=== PATIENT | male | born 1975 | race Asian ===

== ENCOUNTER 2023-01-18 23:41 | Emergency (ER) | payer OTHER, SELFPAY ==
[2023-01-18 23:47] VITALS: O2SAT 97
[2023-01-18 23:48] VITALS: BP 176/92; PULSE 111; O2SAT 99
[2023-01-18 23:55] VITALS: BP 176/92; PULSE 107; RESP 18; TEMP 37.2; O2SAT 99; BMI 28.7
[2023-01-19] VITALS (8 sets, daily range): BP systolic 155–163; BP diastolic 89–94; PULSE 88–107; RESP 13–24; O2SAT 96–100
--- NOTE | 2023-01-19 00:06 | DI.RAD.S_ITS ---
PROCEDURE: XR CHEST 1V INDICATIONS: Chest pain TECHNIQUE: One view of the chest was acquired. COMPARISON: None. FINDINGS: Surgical changes and devices: None. Lungs and pleura: Lungs are clear. No pleural effusions or pneumothorax. Mediastinum: Mediastinal contours appear normal. Heart size is normal. Bones and chest wall: No suspicious bony lesions. Overlying soft tissues appear unremarkable. IMPRESSION: No acute cardiopulmonary abnormality. Dictated by: Ismael Ballard M.D. on 01/19/2023 at 0:20 Approved by: Ismael Ballard M.D. on 01/19/2023 at 0:20
--- NOTE | 2023-01-19 00:23 | ED_ITS ---
HPI - Chest Pain General Chief Complaint: Chest Pain Stated Complaint: high blood pressure 166/103 Time Seen by Provider: 01/19/23 00:05 Source: patient and family Mode of arrival: Ambulatory Limitations: no limitations History of Present Illness HPI narrative: Patient is a 48-year-old male. Does have a history of PTSD secondary to active duty service. Is on duloxetine for this. Is here for evaluation of several weeks of chest discomfort. Has not seen his primary doctor for this. Also states earlier today he took his blood pressure is elevated. He does not have a diagnosis of high blood pressure. He does state that he has a history of exercise-induced asthma. He states he has been hearing some crackling in his lungs. He was concerned about heart failure based on his presenting symptoms. Related Data Allergies Allergy/AdvReac Type Severity Reaction Status Date / Time shellfish derived Allergy Difficulty Verified 01/18/23 23:55 Breathing iodine AdvReac Hives Verified 01/18/23 23:55 Review of Systems Constitutional Constitutional: Reports system reviewed and no additional complaints, except as documented Cardiovascular Cardiovascular: Reports system reviewed and no additional complaints, except as documented Respiratory Respiratory: Reports system reviewed and no additional complaints, except as documented Gastrointestinal Gastrointestinal: Reports system reviewed and no additional complaints, except as documented Integumentary/Breasts Skin/Breast: Reports system reviewed and no additional complaints, except as documented Neurologic Neurologic: Reports system reviewed and no additional complaints, except as documented Patient History Social History Smoking Status: Never smoker Smoking Status: Never smoker Substance Use Type: does not use Exam Initial Vital Signs Initial Vital Signs: Vital Signs Pulse Oximetry 97 01/18/23 23:47 Const General: cooperative, comfortable and No ill appearing [facility] Head: normal to inspection and normocephalic Resp Effort & Inspection: normal respiratory effort Auscultation: clear to auscultation bilaterally Cardio Rate: tachycardic Rhythm: regular rhythm Skin General: no rashes or lesions noted Neuro General: patient alert and moves all extremities Extrem General: normal to inspection and capillary refill normal Course Orders Ordered: ED Orders 01/19/23 00:06 XR chest 1V Stat EKG-12 Lead Stat 01/19/23 01:01 Complete Blood Count AUTO DIFF Stat Comprehensive Metabolic Panel Stat D Dimer Stat Lipase Stat Troponin & CK Cardiac Panel Stat Vital Signs Vital signs: Vital Signs - 8 hr 01/18/23 23:55 01/18/23 23:47 01/18/23 23:48 Temperature 98.9 F Pulse Rate 107 H 111 H Respiratory Rate 18 Blood Pressure 176/92 H Pulse Oximetry 99 97 99 Oxygen Delivery Method Room Air 01/18/23 23:48 01/19/23 00:00 01/19/23 00:00 Temperature Pulse Rate 104 H Respiratory Rate Blood Pressure 176/92 H 155/89 H Pulse Oximetry 100 Oxygen Delivery Method 01/19/23 00:30 01/19/23 00:30 01/19/23 01:00 Temperature Pulse Rate 104 H 107 H Respiratory Rate 19 24 Blood Pressure 163/89 H Pulse Oximetry 98 98 Oxygen Delivery Method 01/19/23 01:01 01/19/23 01:01 01/19/23 01:30 Temperature Pulse Rate 103 H 101 H Respiratory Rate 19 18 Blood Pressure 155/94 H Pulse Oximetry 99 96 Oxygen Delivery Method 01/19/23 02:00 01/19/23 02:30 01/19/23 03:00 Temperature Pulse Rate 105 H 101 H 88 Respiratory Rate 17 18 13 Blood Pressure Pulse Oximetry 98 96 97 Oxygen Delivery Method MDM - Chest Pain Lab Data Attestation: I reviewed the patient's lab results. 01/19/23 01:01 01/19/23 01:01 Labs: Lab Results 01/19/23 01/19/23 01/19/23 Range/Units 01:01 01:01 01:01 WBC 8.8 (4.5-11.0) X10^3/uL RBC 5.41 (4.5-5.9) X10^6/uL Hgb 14.9 (13.5-17.5) g/dL Hct 44.5 (41-53) % MCV 82.2 (80-100) fL MCH 27.6 (26-34) PG MCHC 33.6 (30-36) % RDW 14.0 (11.6-14.8) % Plt Count 274 (150-400) X10^3/uL Neut % (Auto) 65.3 (50-75) % Lymph % (Auto) 26.1 (25-40) % [place] % (Auto) 6.9 (3-14) % Eos % (Auto) 1.2 L (2-4) % Baso % (Auto) 0.5 (0-2) % Neut # (Auto) 5700 (3555-8143) /uL Lymph # (Auto) 2300 (6266-6140) /uL [place] # (Auto) 600 (0-900) /uL Eos # (Auto) 100 (0-450) /uL Baso # (Auto) 0 (0-100) /uL D-Dimer 486 (<500) ng/ml Sodium 139 (137-145) mmol/L Potassium 4.0 (3.4-5.1) mmol/L Chloride 103 (98-107) mmol/L Carbon Dioxide 28 (22-32) mmol/L BUN 15 (9-20) mg/dL Creatinine 1.01 (0.66-1.25) mg/dL Estimated GFR > 60 (>60) mL/min BUN/Creatinine Ratio 14.9 (6-22) Glucose 120 H (70-100) mg/dL Calcium 9.2 (8.4-10.2) mg/dL Total Bilirubin 0.5 (0.2-1.3) mg/dL AST 29 (17-59) IU/L ALT 39 (<50) IU/L Alkaline Phosphatase 75 (38-126) U/L Total Creatine Kinase 117 (55-170) U/L CK-MB (CK-2) 0.38 (<2.37) ng/mL CK-MB (CK-2) Rel Index 0.3 L (1.5-5.0) % Troponin I < 0.012 (0.01-0.034) ng/mL Total Protein 7.7 (6.3-8.2) g/dL Albumin 4.4 (3.5-5.0) g/dL Globulin 3.3 (1.7-4.1) g/dL Albumin/Globulin Ratio 1.3 (1.0-2.8) Lipase 48 (23-300) U/L Imaging Data Chest x-ray: Radiologist's Impression: PROCEDURE:? XR CHEST 1V ? INDICATIONS:? Chest pain ? TECHNIQUE:? One view of the chest was acquired.? ? COMPARISON:? None. ? FINDINGS:? ? Surgical changes and devices:? None.? ? Lungs and pleura:? Lungs are clear.? No pleural effusions or pneumothorax.? ? Mediastinum:? Mediastinal contours appear normal.? Heart size is normal.? ? Bones and chest wall:? No suspicious bony lesions.? Overlying soft tissues appe ar unremarkable.? ? IMPRESSION:? No acute cardiopulmonary abnormality. ECG Data Attestation: I personally reviewed and interpreted this ECG as follows: Interpretation: Sinus tachycardia Ventricular rate 109 Normal axis Normal QRS Normal QTC No ST T wave changes MDM Narrative Medical decision making narrative: Patient's workup here in the emergency department is very reassuring. D-dimer is negative. Low suspicion for ACS. Patient is not appear to have any end- organ dysfunction because of his high blood pressure which did improve on its own without specific intervention here in the ER. Had a long discussion with laverne banegas and his regarding his presenting symptoms. We did discuss the importance of him taking his blood pressure at home and recording the results that he could talk with his primary provider about this. He was given return precautions. He expressed understanding and agreement. Discharge Plan Departure Patient Disposition: Home Clinical Impression: Hypertension Instructions: DI for High Blood Pressure Activity Restrictions/Additional Instructions: I do recommend that you take your blood pressure at home like we discussed. Be sure that your recording these numbers and contact your primary doctor for a follow-up to discuss potentially needing some blood pressure medications. Return to the emergency department for new or worsening symptoms. Referrals: ProviderAysha [Primary Care Provider] - Stand Alone Forms: Patient Portal/API
[2023-01-19 01:13] LABS: Add Manual Diff / Slide Review NO; Basophils Absolute Auto 0 /uL (0-100); Basophils Percent Auto 0.5 % (0-2); Eosinophils Absolute Auto 100 /uL (0-450); Eosinophils Percent Auto 1.2 % (2-4); Hematocrit 44.5 % (41-53); Hemoglobin 14.9 g/dL (13.5-17.5); Lymphocytes Absolute Auto 2300 /uL (1100-4500); Lymphocytes Percent Auto 26.1 % (25-40); Mean Corpuscular HGB Conc 33.6 % (30-36); Mean Corpuscular Hemoglobin 27.6 PG (26-34); Mean Corpuscular Volume 82.2 fL (80-100); Monocytes Absolute Auto 600 /uL (0-900); Monocytes Percent Auto 6.9 % (3-14); Neutrophils Absolute Auto 5700 /uL (1500-7000); Neutrophils Percent Auto 65.3 % (50-75); Platelet Count 274 X10^3/uL (150-400); Red Blood Cell Count 5.41 X10^6/uL (4.5-5.9); White Blood Cell Count 8.8 X10^3/uL (4.5-11.0)
[2023-01-19 01:19] LABS: D Dimer 486 ng/ml (<500)
[2023-01-19 01:24] LABS: Alanine Aminotransferase 39 IU/L (<50); Albumin 4.4 g/dL (3.5-5.0); Albumin Globulin Ratio 1.3 (1.0-2.8); Alkaline Phosphatase 75 U/L (38-126); Aspartate Aminotransferase 29 IU/L (17-59); BUN Creatinine Ratio 14.9 (6-22); Bilirubin Total 0.5 mg/dL (0.2-1.3); Blood Urea Nitrogen 15 mg/dL (9-20); Calcium 9.2 mg/dL (8.4-10.2); Carbon Dioxide 28 mmol/L (22-32); Chloride 103 mmol/L (98-107); Creatine Kinase 117 U/L (55-170); Estimated Glomerular Filt Rate > 60 mL/min (>60); Globulin 3.3 g/dL (1.7-4.1); Glucose 120 mg/dL (70-100); HEMOLYSIS < 15 (0-50); Lipase 48 U/L (23-300); Sodium 139 mmol/L (137-145); Total Protein 7.7 g/dL (6.3-8.2)
[2023-01-19 01:34] LABS: Troponin I < 0.012 ng/mL (0.01-0.034)
[2023-01-19 01:39] LABS: CKMB % Relative Index 0.3 % (1.5-5.0); Creatine Kinase MB 0.38 ng/mL (<2.37)
== END 2023-01-19 03:14 | disposition home or self-care (01) ==
PROVIDERS: Emergency Provider Emergency Medicine
DX: I10 Essential (primary) hypertension (principal); R07.9 Chest pain, unspecified
CPT/HCPCS: 36415; 71045; 80053; 82550; 82553; 83690; 84484; 85025; 85379; 93005; 99283; 99284

== ENCOUNTER 2023-10-28 08:51 | Emergency (ER) | payer OTHER, SELFPAY ==
[2023-10-28 08:59] VITALS: BP 163/92; PULSE 101; RESP 18; TEMP 36.8; O2SAT 100; BMI 27.4
--- NOTE | 2023-10-28 09:08 | DI.RAD.S_ITS ---
PROCEDURE: XR CHEST 1V INDICATIONS: chest pain TECHNIQUE: One view of the chest was acquired. COMPARISON: [facility], CR, XR CHEST 1V, 01/19/2023, 0:06. FINDINGS: Surgical changes and devices: None. Lungs and pleura: Lungs are clear. No pleural effusions or pneumothorax. Mediastinum: Mediastinal contours appear normal. Heart size is normal. Bones and chest wall: No suspicious bony lesions. Overlying soft tissues appear unremarkable. IMPRESSION: No acute cardiopulmonary abnormality is seen. Dictated by: Shefali Seaman M.D. on 10/28/2023 at 9:39 Approved by: Shefali Seaman M.D. on 10/28/2023 at 9:39
--- NOTE | 2023-10-28 09:18 | ED.CHESTPAIN ---
HPI - Chest Pain General Chief Complaint: Chest Pain Stated Complaint: chest pain irregular heart beat from ekg Time Seen by Provider: 10/28/23 08:55 Source: patient Mode of arrival: Ambulatory Limitations: no limitations History of Present Illness HPI narrative: 48-year-old male with history of hypertension, hyperlipidemia presents for intermittent, sharp, nonradiating left-sided suprasternal chest pain since yesterday. He states that he initially went to the walk-in clinic, where he was told that his EKG was ?abnormal?, and referred to the emergency department. He states that he saw how many people there were in the waiting room and did not feel like he needed care more than the other people in the ER and so he went home. Today prior to going to work he decided to come to the ER to make sure that his heart was okay. He does report a history of heart disease in his family, father had IN at 61 years old. Currently pain-free. Related Data Allergies Allergy/AdvReac Type Severity Reaction Status Date / Time shellfish derived Allergy Difficulty Verified 10/28/23 09:03 Breathing iodine AdvReac Hives Verified 10/28/23 09:03 Review of Systems Review of Systems Narrative: Negative except as noted above Patient History Social History Smoking Status: Never smoker Smoking Status: Never smoker alcohol intake frequency: other Substance Use Type: does not use Exam Initial Vital Signs Initial Vital Signs: Vital Signs Temperature 98.3 F 10/28/23 08:59 Pulse Rate 101 H 10/28/23 08:59 Respiratory Rate 18 10/28/23 08:59 Blood Pressure 163/92 H 10/28/23 08:59 Pulse Oximetry 100 10/28/23 08:59 Oxygen Delivery Method Room Air 10/28/23 08:59 Const: Awake, alert, no acute distress, nontoxic appearing Cardiac: regular rate, regular rhythm RESP: unlabored, clear bilaterally, no wheezing GI: Atraumatic, soft, nontender, nondistended, no rebound, no guarding MSK: Atraumatic, full range of motion, pulses equal Skin: Warm, Dry, intact, no rashes Neuro: AO x3, CN II-XII grossly intact, moves all extremities Psych: affect normal, mood normal, not suicidal, not homicidal Course Orders Ordered: ED Orders 10/28/23 09:08 XR chest 1V Stat EKG-12 Lead Stat 10/28/23 09:15 Complete Blood Count AUTO DIFF Stat Comprehensive Metabolic Panel Stat Lipase Stat Troponin & CK Cardiac Panel Stat Discontinued Medications Aspirin (Aspirin 81 Mg Chew Tab) 324 mg PO NOW ONE Stop: 10/28/23 09:09 Last Admin: 10/28/23 09:46 Dose: 324 mg Documented By: AMV Sodium Chloride (Normal Saline 0.9%) 1,000 mls @ 150 mls/hr IV CONT SHRUTHI Last Admin: 10/28/23 09:46 Dose: 150 mls/hr Documented By: AMV Vital Signs Vital signs: Vital Signs - 8 hr 10/28/23 08:59 10/28/23 09:39 10/28/23 10:00 Temperature 98.3 F Pulse Rate 101 H 101 H 95 H Respiratory Rate 18 18 18 Blood Pressure 163/92 H Pulse Oximetry 100 99 100 Oxygen Delivery Method Room Air 10/28/23 10:00 10/28/23 10:44 Temperature 99 F Pulse Rate 100 H Respiratory Rate 20 Blood Pressure 148/89 H 148/89 H Pulse Oximetry 98 Oxygen Delivery Method Room Air MDM - Chest Pain Differential Diagnosis Differential diagnosis: Likely pneumothorax, atypical chest pain and costochondritis Lab Data 10/28/23 09:15 10/28/23 09:15 Labs: Lab Results 10/28/23 Range/Units 09:15 WBC 8.3 (4.5-11.0) X10^3/uL RBC 5.76 (4.5-5.9) X10^6/uL Hgb 16.0 (13.5-17.5) g/dL Hct 47.8 (41-53) % MCV 82.9 (80-100) fL MCH 27.8 (26-34) PG MCHC 33.5 (30-36) % RDW 13.6 (11.6-14.8) % Plt Count 283 (150-400) X10^3/uL Neut % (Auto) 70.2 (50-75) % Lymph % (Auto) 23.2 L (25-40) % [place] % (Auto) 5.1 (3-14) % Eos % (Auto) 0.6 L (2-4) % Baso % (Auto) 0.9 (0-2) % Neut # (Auto) 5800 (4952-2148) /uL Lymph # (Auto) 1900 (4118-8783) /uL [place] # (Auto) 400 (0-900) /uL Eos # (Auto) 0 (0-450) /uL Baso # (Auto) 100 (0-100) /uL Sodium 137 (137-145) mmol/L Potassium 3.7 (3.4-5.1) mmol/L Chloride 101 (98-107) mmol/L Carbon Dioxide 26 (22-32) mmol/L BUN 17 (9-20) mg/dL Creatinine 1.08 (0.66-1.25) mg/dL Estimated GFR > 60 (>60) mL/min BUN/Creatinine Ratio 15.7 (6-22) Glucose 149 H (70-100) mg/dL Calcium 9.7 (8.4-10.2) mg/dL Total Bilirubin 0.8 (0.2-1.3) mg/dL AST 28 (17-59) IU/L ALT 27 (<50) IU/L Alkaline Phosphatase 68 (38-126) U/L Total Creatine Kinase 113 (55-170) U/L Troponin I < 0.012 (0.01-0.034) ng/mL Total Protein 8.3 H (6.3-8.2) g/dL Albumin 4.7 (3.5-5.0) g/dL Globulin 3.6 (1.7-4.1) g/dL Albumin/Globulin Ratio 1.3 (1.0-2.8) Lipase 55 (23-300) U/L [facility] Narrative Medical decision making narrative: Well appearing patient with intermittent chest pain, exacerbated after doing pushups yesterday. EKGs normal sinus rhythm, he is currently chest pain-free. Heart score of 3 based on age and risk factors, however story is not consistent with ACS and troponin is undetectable. Chest x-ray negative for acute findings. Patient reassured of normal labs and x-ray imaging. Patient urged to follow up with his primary care physician and Cardiology given his family history of heart disease. A referral to Cardiology was provided in his paperwork. ED return precautions discussed at bedside. Patient expressed understanding of the plan and is in agreement at this time. All questions answered at the time of discharge. Discharge Plan Departure Patient Disposition: Home Clinical Impression: Chest pain Instructions: DI for Chest Pain Activity Restrictions/Additional Instructions: I do not know the cause of your chest pain, however your labs and imaging were normal today. Based on your risk factors and family history I do recommend that he see a captain airline pilot, a referral is in your paperwork. Please call for the next available appointment. Please also follow up with your primary care physician. Referrals: ProviderAysha [Primary Care Provider] - Javier Rodgers [Non-Staff] - Stand Alone Forms: Patient Portal/API
[2023-10-28 09:19] LABS: Add Manual Diff / Slide Review NO; Basophils Absolute Auto 100 /uL (0-100); Basophils Percent Auto 0.9 % (0-2); Eosinophils Absolute Auto 0 /uL (0-450); Eosinophils Percent Auto 0.6 % (2-4); Hematocrit 47.8 % (41-53); Lymphocytes Absolute Auto 1900 /uL (1100-4500); Lymphocytes Percent Auto 23.2 % (25-40); Mean Corpuscular HGB Conc 33.5 % (30-36); Mean Corpuscular Hemoglobin 27.8 PG (26-34); Mean Corpuscular Volume 82.9 fL (80-100); Monocytes Absolute Auto 400 /uL (0-900); Monocytes Percent Auto 5.1 % (3-14); Neutrophils Absolute Auto 5800 /uL (1500-7000); Neutrophils Percent Auto 70.2 % (50-75); Platelet Count 283 X10^3/uL (150-400); Red Blood Cell Count 5.76 X10^6/uL (4.5-5.9); Red Cell Distribution Width 13.6 % (11.6-14.8); White Blood Cell Count 8.3 X10^3/uL (4.5-11.0)
[2023-10-28 09:30] LABS: Alanine Aminotransferase 27 IU/L (<50); Albumin 4.7 g/dL (3.5-5.0); Albumin Globulin Ratio 1.3 (1.0-2.8); Alkaline Phosphatase 68 U/L (38-126); Aspartate Aminotransferase 28 IU/L (17-59); BUN Creatinine Ratio 15.7 (6-22); Bilirubin Total 0.8 mg/dL (0.2-1.3); Blood Urea Nitrogen 17 mg/dL (9-20); Calcium 9.7 mg/dL (8.4-10.2); Carbon Dioxide 26 mmol/L (22-32); Chloride 101 mmol/L (98-107); Creatine Kinase 113 U/L (55-170); Estimated Glomerular Filt Rate > 60 mL/min (>60); Globulin 3.6 g/dL (1.7-4.1); Glucose 149 mg/dL (70-100); HEMOLYSIS < 15 (0-50); Lipase 55 U/L (23-300); Potassium 3.7 mmol/L (3.4-5.1); Sodium 137 mmol/L (137-145); Total Protein 8.3 g/dL (6.3-8.2)
[2023-10-28 09:39] VITALS: PULSE 101; RESP 18; O2SAT 99
[2023-10-28 09:42] LABS: Troponin I < 0.012 ng/mL (0.01-0.034)
[2023-10-28] MEDS: ASPIRIN 81 MG CHEW TAB 324 MG PO (09:46)
[2023-10-28] MEDS: SODIUM CHLORIDE 0.9% 1,000 ML 150 ML IV (09:46)
[2023-10-28 10:00] VITALS: BP 148/89; PULSE 95; RESP 18; O2SAT 100
[2023-10-28 10:44] VITALS: BP 148/89; PULSE 100; RESP 20; TEMP 37.2; O2SAT 98
== END 2023-10-28 10:45 | disposition home or self-care (01) ==
PROVIDERS: Emergency Provider Emergency Medicine
DX: R07.9 Chest pain, unspecified (principal)
CPT/HCPCS: 36415; 71045; 80053; 82550; 83690; 84484; 85025; 93005; 93010; 99284

== ENCOUNTER 2023-12-01 09:59 | Emergency (ER) | payer OTHER, SELFPAY ==
[2023-12-01] VITALS (12 sets, daily range): BP systolic 114–123; BP diastolic 68–73; PULSE 99–118; RESP 14–28; TEMP 37.3–37.8; O2SAT 96–100; BMI 25.8
--- NOTE | 2023-12-01 10:30 | DI.RAD.S_ITS ---
PROCEDURE: XR CHEST 1V INDICATIONS: suspected sepsis TECHNIQUE: One view of the chest was acquired. COMPARISON: [facility], CR, XR CHEST 1V, 10/28/2023, 9:13. [facility], CR, XR CHEST 1V, 01/19/2023, 0:06. FINDINGS: Surgical changes and devices: None. Lungs and pleura: Lungs are clear. No pleural effusions or pneumothorax. Mediastinum: Mediastinal contours appear normal. Heart size is normal. Bones and chest wall: No suspicious bony lesions. Overlying soft tissues appear unremarkable. IMPRESSION: No acute cardiopulmonary abnormality is seen. Dictated by: Aaron Leroy M.D. on 12/01/2023 at 10:41 Approved by: Aaron Leroy M.D. on 12/01/2023 at 10:42
[2023-12-01 11:00] LABS: Add Manual Diff / Slide Review NO; Basophils Absolute Auto 0 /uL (0-100); Basophils Percent Auto 0.2 % (0-2); Eosinophils Absolute Auto 0 /uL (0-450); Eosinophils Percent Auto 0.1 % (2-4); Hematocrit 44.2 % (41-53); Hemoglobin 14.6 g/dL (13.5-17.5); Lymphocytes Absolute Auto 800 /uL (1100-4500); Lymphocytes Percent Auto 7.1 % (25-40); Mean Corpuscular HGB Conc 33.1 % (30-36); Mean Corpuscular Hemoglobin 27.9 PG (26-34); Mean Corpuscular Volume 84.3 fL (80-100); Monocytes Absolute Auto 600 /uL (0-900); Monocytes Percent Auto 5.2 % (3-14); Neutrophils Absolute Auto 9400 /uL (1500-7000); Neutrophils Percent Auto 87.4 % (50-75); Platelet Count 222 X10^3/uL (150-400); Red Blood Cell Count 5.24 X10^6/uL (4.5-5.9); Red Cell Distribution Width 13.8 % (11.6-14.8); White Blood Cell Count 10.8 X10^3/uL (4.5-11.0)
[2023-12-01] MEDS: SODIUM CHLORIDE 0.9% 1,000 ML 1000 ML IV ×2 (11:03→11:59)
[2023-12-01 11:07] LABS: Prothrombin Time 11.4 SECONDS (9.4-12.5)
[2023-12-01 11:10] LABS: PTT Partial Thromboplastin Tim 34 SECONDS (25.1-36.5)
[2023-12-01 11:12] LABS: Alanine Aminotransferase 20 IU/L (<50); Albumin 4.2 g/dL (3.5-5.0); Albumin Globulin Ratio 1.4 (1.0-2.8); Alkaline Phosphatase 82 U/L (38-126); Aspartate Aminotransferase 24 IU/L (17-59); BUN Creatinine Ratio 17.6 (6-22); Bilirubin Total 0.5 mg/dL (0.2-1.3); Blood Urea Nitrogen 16 mg/dL (9-20); Calcium 8.9 mg/dL (8.4-10.2); Carbon Dioxide 21 mmol/L (22-32); Chloride 104 mmol/L (98-107); Estimated Glomerular Filt Rate > 60 mL/min (>60); Globulin 3.1 g/dL (1.7-4.1); Glucose 109 mg/dL (70-100); HEMOLYSIS < 15 (0-50); Lipase 53 U/L (23-300); Potassium 3.5 mmol/L (3.4-5.1); Sodium 136 mmol/L (137-145); Total Protein 7.3 g/dL (6.3-8.2)
[2023-12-01 11:13] LABS: Lactate (Lactic Acid) 1.5 mmol/L (0.7-2.1)
[2023-12-01 11:29] LABS: Procalcitonin 0.26 ng/mL (<0.5)
[2023-12-01 12:00] LABS: Adenovirus Not Detected (Not Detect); B. parapertussis Not Detected (Not Detecte); Bordetella pertussis Not Detected (Not Detect); Chlamydophila pneumoniae Not Detected (Not Detect); Coronavirus 229E Not Detected (Not Detect); Coronavirus HKU1 Not Detected (Not Detect); Coronavirus NL 63 Not Detected (Not Detect); Coronavirus OC43 Not Detected (Not Detect); Human Metapneumovirus Not Detected (Not Detect); Human Rhinovirus/Enterovirus Not Detected (Not Detect); Influenza A Not Detected (Not Detect); Influenza B Not Detected (Not Detect); Mycoplasma pneumoniae Not Detected (Not Detect); Parainfluenza Virus 1 Not Detected (Not Detect); Parainfluenza Virus 2 Not Detected (Not Detect); Parainfluenza Virus 3 Not Detected (Not Detect); Parainfluenza Virus 4 Not Detected (Not Detect); Respiratory Syncytial Virus Not Detected (Not Detect); SARS- CoV-2 Not Detected (Not Detecte)
[2023-12-01 12:49] LABS: Creatine Kinase 94 U/L (55-170)
[2023-12-01 12:59] LABS: D Dimer 1757 ng/ml (<500)
[2023-12-01 13:02] LABS: Troponin I < 0.012 ng/mL (0.01-0.034)
--- NOTE | 2023-12-01 13:13 | ED.FEVER ---
HPI - Fever General Chief Complaint: Fever Stated Complaint: fever, heart rate 160, heavy breathing Time Seen by Provider: 12/01/23 10:39 Source: patient Mode of arrival: Ambulatory Limitations: no limitations History of Present Illness HPI Narrative: 48-year-old male with history of hypertension, dyslipidemia, anxiety/depression who presents with complaint of fever and chills that started last night with a heart rate up to 160s at home patient states he was very sweaty, he took some aspirin started to feel better but tachycardia is persistent although improved throughout the morning. Patient states heart rates been coming down although still elevated he denies chest pain or shortness of breath, he denies cold cough or congestion. Had a little bit of headache describes myalgias. States he has some burning after urination but no discharge. No frequency or urgency. No abdominal back or flank pain. No cold cough or congestion symptoms. States he gets swelling occasionally in his extremities but not regularly. Had little nausea today but no vomiting. Denies any issues with bowel movements. Patient states no known sick contacts. Symptoms stated in the last day. He states no long distance travel. No prior surgeries. No known drug allergies. No tobacco, alcohol or recreational drugs. Patient's primary care is at the [facility]. He is accompanied by his family. Related Data Allergies Allergy/AdvReac Type Severity Reaction Status Date / Time shellfish derived Allergy Difficulty Verified 12/01/23 10:12 Breathing iodine AdvReac Hives Verified 12/01/23 10:12 Review of Systems Review of Systems ROS Unobtainable: All systems reviewed & are unremarkable except as noted in HPI and below Patient History Social History Smoking Status: Never smoker Smoking Status: Never smoker alcohol intake frequency: other Substance Use Type: does not use Exam Narrative Exam Narrative: GEN: well nourished, well appearing male, alert and oriented x 3, patient appears to be in mild distress. HEENT: Atraumatic, pupils are equal round reactive to light, extraocular movements are intact, nares are clear, TMs are clear with no fluid, there is no conjunctival pallor. Throat is clear without any exudates, erythema, tonsillar enlargement or uvular deviation, HEART: Regular rate and rhythm without murmur, clicks, rubs. Pulses are equal in upper and lower extremities LUNGS:Lungs clear to auscultation, no wheezes, rales, crackles, chest moves symmetrically ABD:bowel sounds normal, soft, non-tender, no guarding, rebound, rigidity, no masses noted, no hepatosplenomegaly :No CVA tenderness MSCL: Non-tender, no muscle atrophy, muscles strength 5/5 upper and lower extremities, full range of motion, normal gait NEURO:CN 2-12 intact, sensation normal SKIN: No rash, erythema or other skin changes Initial Vital Signs Initial Vital Signs: Vital Signs Pulse Rate 118 H 12/01/23 10:04 Respiratory Rate 19 12/01/23 10:04 Pulse Oximetry 96 12/01/23 10:04 Course Orders Ordered: ED Orders 12/01/23 10:30 XR chest 1V Stat RT Consult Eval and Treat NOW 12/01/23 10:40 EKG-12 Lead Routine 12/01/23 10:50 Complete Blood Count AUTO DIFF Stat Comprehensive Metabolic Panel Stat D Dimer Stat Lactate (Lactic Acid) Stat Lipase Stat PTT Partial Thromboplastin Syed Stat Procalcitonin Stat Prothrombin Time INR Stat Troponin & CK Cardiac Panel Stat 12/01/23 10:58 Respiratory Panel (Film Array) Stat 12/01/23 11:05 Blood Culture Stat 12/01/23 13:13 CT angio chest PE protocol Stat Discontinued Medications Sodium Chloride (Normal Saline 0.9%) 1,000 mls @ 1,000 mls/hr IV BOLUS ONE Stop: 12/01/23 11:29 Last Infusion: 12/01/23 11:58 Dose: Infused Documented By: Admin: 12/01/23 11:03 Dose: 1,000 mls/hr Documented By: LILY(2) Sodium Chloride (Normal Saline 0.9%) 1,000 mls @ 1,000 mls/hr IV BOLUS ONE Stop: 12/01/23 11:38 Last Infusion: 12/01/23 13:15 Dose: Infused Documented By: LILY(2) Admin: 12/01/23 11:59 Dose: 1,000 mls/hr Documented By: LILY Ondansetron HCl (Ondansetron 4 Mg/2 Ml Inj) 4 mg IV NOW PRN PRN Reason: Nausea And Vomiting Vital Signs Vital signs: Vital Signs - 8 hr 12/01/23 10:04 12/01/23 10:05 12/01/23 10:05 Temperature Pulse Rate 118 H 118 H Respiratory Rate 19 18 Blood Pressure 118/72 Pulse Oximetry 96 99 Oxygen Delivery Method 12/01/23 10:08 12/01/23 10:34 12/01/23 11:00 Temperature 99.2 F Pulse Rate 112 H 114 H 109 H Respiratory Rate 17 28 H 14 Blood Pressure 118/72 Pulse Oximetry 98 98 99 Oxygen Delivery Method Room Air 12/01/23 11:30 12/01/23 12:00 12/01/23 12:15 Temperature Pulse Rate 102 H 102 H 99 H Respiratory Rate 21 19 23 Blood Pressure Pulse Oximetry 98 100 99 Oxygen Delivery Method 12/01/23 12:23 12/01/23 12:23 12/01/23 12:24 Temperature Pulse Rate 104 H 104 H Respiratory Rate 23 26 H Blood Pressure 114/68 114/68 Pulse Oximetry 100 100 Oxygen Delivery Method Room Air 12/01/23 12:30 12/01/23 12:30 12/01/23 14:11 Temperature 100.0 F H Pulse Rate 104 H 108 H Respiratory Rate 18 Blood Pressure 123/73 Pulse Oximetry 100 98 Oxygen Delivery Method Room Air MDM - Fever Lab Data 12/01/23 10:50 12/01/23 10:50 Labs: Lab Results 12/01/23 12/01/23 Range/Units 10:50 10:58 WBC 10.8 (4.5-11.0) X10^3/uL RBC 5.24 (4.5-5.9) X10^6/uL Hgb 14.6 (13.5-17.5) g/dL Hct 44.2 (41-53) % MCV 84.3 (80-100) fL MCH 27.9 (26-34) PG MCHC 33.1 (30-36) % RDW 13.8 (11.6-14.8) % Plt Count 222 (150-400) X10^3/uL Neut % (Auto) 87.4 H (50-75) % Lymph % (Auto) 7.1 L (25-40) % [place] % (Auto) 5.2 (3-14) % Eos % (Auto) 0.1 L (2-4) % Baso % (Auto) 0.2 (0-2) % Neut # (Auto) 9400 H (8941-9053) /uL Lymph # (Auto) 800 L (0986-1937) /uL [place] # (Auto) 600 (0-900) /uL Eos # (Auto) 0 (0-450) /uL Baso # (Auto) 0 (0-100) /uL PT 11.4 (9.4-12.5) SECONDS INR 1.0 (0.9-1.3) APTT 34 (25.1-36.5) SECONDS D-Dimer 1757 H (<500) ng/ml Sodium 136 L (137-145) mmol/L Potassium 3.5 (3.4-5.1) mmol/L Chloride 104 (98-107) mmol/L Carbon Dioxide 21 L (22-32) mmol/L BUN 16 (9-20) mg/dL Creatinine 0.91 (0.66-1.25) mg/dL Estimated GFR > 60 (>60) mL/min BUN/Creatinine Ratio 17.6 (6-22) Glucose 109 H (70-100) mg/dL Lactate 1.5 (0.7-2.1) mmol/L Calcium 8.9 (8.4-10.2) mg/dL Total Bilirubin 0.5 (0.2-1.3) mg/dL AST 24 (17-59) IU/L ALT 20 (<50) IU/L Alkaline Phosphatase 82 (38-126) U/L Total Creatine Kinase 94 (55-170) U/L Troponin I < 0.012 (0.01-0.034) ng/mL Total Protein 7.3 (6.3-8.2) g/dL Albumin 4.2 (3.5-5.0) g/dL Globulin 3.1 (1.7-4.1) g/dL Albumin/Globulin Ratio 1.4 (1.0-2.8) Lipase 53 (23-300) U/L Procalcitonin 0.26 (<0.5) ng/mL Chlamy pneumoniae PCR Not detected (Not Detect) Adenovirus (PCR) Not detected (Not Detect) B.parapertussis DNA PCR Not detected (Not Detecte) Coronavirus OC43 (PCR) Not detected (Not Detect) Coronavirus HKU1 (PCR) Not detected (Not Detect) Coronavirus 229E (PCR) Not detected (Not Detect) SARS-CoV-2 (PCR) Not detected (Not Detecte) Coronavirus NL63 (PCR) Not detected (Not Detect) Human Metapneumovir PCR Not detected (Not Detect) Influenza Type A (PCR) Not detected (Not Detect) Influenza Type B (PCR) Not detected (Not Detect) M. pneumoniae (PCR) Not detected (Not Detect) Parainfluenza 1 (PCR) Not detected (Not Detect) Parainfluenza 2 (PCR) Not detected (Not Detect) Parainfluenza 3 (PCR) Not detected (Not Detect) Parainfluenza 4 (PCR) Not detected (Not Detect) RSV (PCR) Not detected (Not Detect) Entero/Rhino (PCR) Not detected (Not Detect) Urine Dip Bedside Urine Glucose Negative Bedside Urine Bilirubin - Negative Bedside Urine Ketone - Negative Urine Specific [place] 1.010 Bedside Urine Occult Blood - Negative Bedside Urine pH 7.0 Bedside Urine Protein - Negative Bedside Urine Urobilinogen - Negative Bedside Urine Nitrite - Negative Bedside Urine Leukocytes - Negative Esterase Imaging Data Chest x-ray: Radiologist's Impression: Ezekiel Todd??48??M??1975 ? Allergy/Adv: shellfish derived, iodine (More??) Close Chest X-Ray (Signed) Aaron Leroy - 12/01/23 Chest X-Ray (Signed) SeamanShefali hanson - 10/28/23 Chest X-Ray (Signed) Jose Ballardn - 01/19/23 Launch?[facility] [address] [address] XRay Report Signed Patient: Ezekiel Todd MR#: [id number] : 1975 Acct:[id number] Age/Sex: 48 / M Date of Service: 12/01/23 Loc: ED Accession Number: [id number] Procedure: XR chest 1V Ordering Provider: Yvonne Mosley D.O. PROCEDURE: XR CHEST 1V INDICATIONS: suspected sepsis TECHNIQUE: One view of the chest was acquired. COMPARISON: [facility], CR, XR CHEST 1V, 10/28/2023, 9:13. [facility], CR, XR CHEST 1V, 01/19/2023, 0:06. FINDINGS: Surgical changes and devices: None. Lungs and pleura: Lungs are clear. No pleural effusions or pneumothorax. Mediastinum: Mediastinal contours appear normal. Heart size is normal. Bones and chest wall: No suspicious bony lesions. Overlying soft tissues appear unremarkable. IMPRESSION: No acute cardiopulmonary abnormality is seen. Dictated by: Aaron Leroy M.D. on 12/01/2023 at 10:41 Approved by: Aaron Leroy M.D. on 12/01/2023 at 10:42 CT scan - chest: Radiologist's Impression: Close Chest CTA (Signed) Barbara Sanon - 12/01/23 Chest X-Ray (Signed) Aaron Leroy - 12/01/23 Chest X-Ray (Signed) Shefali Seaman - 10/28/23 Chest X-Ray (Signed) Ismael Ballard - 01/19/23 Launch?[place] [address] CT Scan Report Signed Patient: Ezekiel Todd MR#: [id number] : 1975 Acct:[id number] Age/Sex: 48 / M Date of Service: 12/01/23 Loc: ED Accession Number: [id number] Procedure: CT angio chest PE protocol Ordering Provider: Yvonne Mosley D.O. PROCEDURE: CT ANGIO CHEST PE PROTOCOL INDICATIONS: fever, tachycardia, elevated dimer TECHNIQUE: After the administration of intravenous contrast, 2 mm thick sections acquired from the pulmonary apices to the posterior costophrenic angles. 3-dimensional maximum intensity projection (MIP) coronal and sagittal reformats were then acquired through the thorax. For radiation dose reduction, the following was used: automated exposure control, adjustment of mA and/or kV according to patient size. COMPARISON: [facility], CR, XR CHEST 1V, 12/01/2023, 10:32. FINDINGS: Image quality: Diagnostic. Pulmonary arteries: Pulmonary arteries are normal in size, and demonstrate no intraluminal filling defects to suggest central pulmonary embolism. Lower Neck: No enlarged lymph nodes. Thyroid: No thyroid nodules which require sonographic follow up, per consensus guidelines. Axillae: No enlarged lymph nodes. Chest Wall: Unremarkable. Bones: Unremarkable. Lungs and Pleura: No pneumothorax or pleural effusions. No consolidation or suspicious nodules. Heart: Heart size is normal. No pericardial effusion. Thoracic Vessels: No aortic aneurysm. Mediastinum and Carly: No enlarged lymph nodes. Esophagus: No wall thickening. No hiatal hernia. Upper Abdomen: Visualized upper abdomen solid organs and bowel loops appear normal. IMPRESSION: No pulmonary embolus. No acute cardiopulmonary process. Dictated by: Barbara Sanon MD, PhD on 12/01/2023 at 13:35 Approved by: Barbara Sanon MD, PhD on 12/01/2023 at 13:40 ECG Data Attestation: I personally reviewed and interpreted this ECG as follows: Interpretation: Sinus tachycardia rate of 114 OK 144 QRS 80 QTC of 421. No S-wave does has a Q 3 T3. No other acute ST changes appreciated. MDM Narrative Medical decision making narrative: 48-year-old male with fevers chills, myalgias, tachycardia which he states was up to 160 according to his watch at home states he was very sweaty he did take some aspirin for fever felt improved but has been continued to be tachycardic but no fever here in the department. Patient had minimal improvement while receiving fluids 1L NS, was given second liter. Labs show normal white count, hemoglobin and platelets, leftward shift with 87% neutrophils. Coags are negative, D-dimer was added on after the persistent tachycardia in his 1757 outside range. Labs otherwise show a sodium of 136 CO2 of 21 normal electrolytes glucose of 109- lactate normal LFTs negative troponin negative procalcitonin. Respiratory panel is negative Chest x-ray is negative Point of care urine is negative. EKG shows sinus tach, Q-wave but no S1 T-wave is slightly inverted at lead 3 as well no other ST changes are noted. Patient's workup is overall reassuring except for elevated dimer, does have persistent tachycardia despite a L of fluids was started on a 2 L he has not hypoxic he has not hypotensive, has myalgias, fevers no real chest pain or shortness of breath but after discussion CT chest angio was obtained and is negative. Patient is felt appropriate for discharge home. Suspect likely has some form of viral illness causing fever and tachycardia. Discharge Plan Departure Patient Disposition: Home Clinical Impression: Tachycardia Activity Restrictions/Additional Instructions: Follow up as needed. Treat any fevers with Tylenol and/or ibuprofen. Continue to drink fluids and stay hydrated. Your workup today overall was reassuring and shows no other major changes. Please return for new chest pain, shortness of breath, lightheadedness or passing out, new swelling of her extremities, persistent vomiting, black or bloody stools or other new or concerning changes. Referrals: ProviderAysha [Primary Care Provider] - Stand Alone Forms: Patient Portal/API
== END 2023-12-01 14:11 | disposition home or self-care (01) ==
PROVIDERS: Emergency Provider Emergency Medicine
DX: R00.0 Tachycardia, unspecified (principal); R79.89 Other specified abnormal findings of blood chemistry; Z20.822 Contact with and (suspected) exposure to COVID-19
CPT/HCPCS: 36415; 71045; 71275; 80053; 81003; 82550; 83605; 83690; 84145; 84484; 85025; 85379; 85610; 85730; 87040; 87633; 93005; 96360; 96361; 99284; Q9967

== ENCOUNTER → 2024-05-04 07:02 | Outpatient (CLI) | payer OTHER, SELFPAY ==
--- NOTE | 2024-05-04 07:04 | DI.ECHO.S_ITS ---
[facility] : : [id number] : [place] : : [id number] : : Phone: [phone] Echocardiogram Report + + :Name: MARC HOLMAN Study Date: 05/04/2024 Height: 66 in : :Hospital ReadingLocation: Weight: 175 lb : : Gender: Male BSA: 1.9 m2 : :: 1975 Age: 49 yrs BP: 131/90 mmHg: :Reason For Study: SYNCOPE AND COLLAPSE : :Ordering Physician: Juan Francisco LAWSONformed By: Maria Elena Starks : :Referring: JUVENAL LAWSON : + + Interpretation Summary The ejection fraction is estimated to be 60-65%. Diastolic parameters suggest probable normal left ventricular diastolic function and normal filling pressures. The right ventricle is normal in size and function. No significant valvular abnormalities. Pulmonary artery pressures cannot be estimated because of the lack of a measurable TR jet velocity but the IVC suggests a CVP of around 3 mmHg. Procedure: A two-dimensional transthoracic echocardiogram with color flow and Doppler was performed. The study quality was technically adequate. There is no prior echocardiogram noted for this patient. The patient was in sinus rhythm with heart rates between 77-94 bpm during the exam. Left Ventricle: The left ventricle is normal in size and wall thickness. The ejection fraction is estimated to be 60-65%. Diastolic parameters suggest probable normal left ventricular diastolic function and normal filling pressures. Right Ventricle: The right ventricle is normal in size and function. Atria: The left atrial size is normal. Right atrial size is normal. There is no Doppler evidence for an interatrial shunt. Mitral Valve: The mitral valve is normal in structure and function. There is trace mitral regurgitation. Aortic Valve: The aortic valve is trileaflet. The aortic valve opens well. There is no aortic valve stenosis. No aortic regurgitation is present. Tricuspid Valve: The tricuspid valve is normal in structure and function. There is trace tricuspid regurgitation. Pulmonary artery pressures cannot be estimated because of the lack of a measurable TR jet velocity but the IVC suggests a CVP of around 3 mmHg. Pulmonic Valve: The pulmonic valve leaflets are thin and pliable; valve motion is normal. There is trace pulmonic regurgitation. Great Vessels: The aortic root is normal size. The dimensions of the ascending aorta are normal. The IVC is of normal diameter and collapses greater than 50% with a sniff. This suggests a low right atrial pressure of 3 mm Hg. Pericardium/ Pleura There is no pericardial effusion. There is no pleural effusion. MMode/2D Measurements & Calculations LVIDd: 4.8 cm LVOT diam: 2.1 cm LVIDs: 3.0 cm Ao root diam: 3.2 cm FS: 37.2 % asc Aorta Diam: 3.6 cm IVSd: 0.77 cm Ao Arch Diam (Prox Trans): 3.0 cm LVPWd: 0.89 cm LV dowell. diameter/BSA (cm/m^2): 2.5 LV sys. diameter/BSA (cm/m^2): 1.6 LA A2 area: 15.5 cm2 RA long axis: 4.6 cm LA A4 area: 13.3 cm2 RA area: 13.3 cm2 LA length (vol): 4.7 cm RA vol: 32.3 ml LA vol: 37.3 ml RA : 17.1 ml/m2 LA vol index: 19.8 ml/m2 IVC diam: 1.6 cm RVD1 (basal): 3.4 cm TAPSE: 1.9 cm Doppler Measurements & Calculations Ao V2 max: 126.2 cm/sec LVOT Max Johnson: 84.9 cm/sec Ao V2 mean: 87.6 cm/sec LV V1 max P.9 mmHg Ao max P.4 mmHg LV V1 VTI: 16.8 cm Ao mean P.4 mmHg HUGO(I,D): 2.4 cm2 Ao V2 VTI: 23.5 cm HUGO(V,D): 2.3 cm2 sev ratio: 0.71 HUGO indexed to BSA (cm^2/m^2): 1.3 MV E max johnson: 68.1 cm/sec TR max johnson: 209.0 cm/sec MV A max johnson: 68.1 cm/sec TR max P.5 mmHg MV E/A: 1.0 PA V2 max: 100.3 cm/sec Med Peak E' Johnson: 8.4 cm/sec PA V2 mean: 69.9 cm/sec E/E' med: 8.1 PA mean P.2 mmHg Lat Peak E' Johnson: 12.7 cm/sec PA pr(Accel): 32.8 mmHg E/E' lat: 5.3 E/e' average: 6.7 MV dec time: 0.20 sec SV(LVOT): 57.4 ml Reading Physician:10:52 AM
== END ==
PROVIDERS: Referring Provider Internal Medicine Cardiovascular Disease; Visit Provider Internal Medicine Cardiovascular Disease
DX: R55 Syncope and collapse (principal)
CPT/HCPCS: 93306

== ENCOUNTER 2024-07-16 10:20 | Emergency (ER) | payer OTHER, SELFPAY ==
[2024-07-16 10:40] VITALS: BP 125/87; PULSE 97; RESP 16; TEMP 36.6; O2SAT 99; BMI 29.0
--- NOTE | 2024-07-16 10:59 | DI.RAD.S_ITS ---
PROCEDURE: XR FOOT RT MIN 3V INDICATIONS: pain, swelling TECHNIQUE: 3 views of the foot were acquired. COMPARISON: None. FINDINGS: Bones: No fractures or dislocations. No suspicious bony lesions. Soft tissues: No tibiotalar joint effusion. Achilles tendon appears normal. IMPRESSION: No acute bony abnormality. Approved by: Justino Thompson M.D. on 07/16/2024 at 11:10
--- NOTE | 2024-07-16 10:59 | DI.RAD.S_ITS ---
PROCEDURE: XR ANKLE RT MIN 3V INDICATIONS: pain, swelling TECHNIQUE: 3 views of the ankle were acquired. COMPARISON: None. FINDINGS: Bones: No fractures or dislocations. Ankle mortise is normally aligned. No suspicious bony lesions. Soft tissues: No tibiotalar joint effusion. Achilles tendon appears normal. IMPRESSION: No acute bony abnormality or significant effusion. Approved by: Justino Thompson M.D. on 07/16/2024 at 10:57
--- NOTE | 2024-07-16 12:22 | ED_ITS ---
HPI - Extremity Problem <Alex Yousif PA-C - Last Filed: 07/16/24 12:36> General Chief complaint: Extremity Problem,Nontraumatic Stated complaint: Swollen right foot/painful Time Seen by Provider: 07/16/24 11:05 Source: patient Mode of arrival: Family Vehicle History of Present Illness HPI Narrative: This patient is a 49-year-old male that presents today for right lateral ankle discomfort and swelling. He apparently had an injury to the right great toe approximately a week ago which caused him to walk abnormally. He states that his toe has improved significantly and he is trying to walk normally once again. The patient has been taking aspirin intermittently for his discomfort. Patient denies blunt force trauma to the ankle, night sweats, fever, chills, recent illness, numbness or tingling distally or history of gout. He also denies any skin changes, lesions or rash of the affected area. He has not seen his PCP for today's chief complaint. Related Data Previous Rx's Medication Instructions Recorded indomethacin 50 mg capsule 50 mg PO TID PRN pain #20 caps 07/16/24 Allergies Allergy/AdvReac Type Severity Reaction Status Date / Time shellfish derived Allergy Difficulty Verified 12/01/23 10:12 Breathing iodine AdvReac Hives Verified 12/01/23 10:12 Review of Systems <Alex Yousif PA-C - Last Filed: 07/16/24 12:36> Review of Systems Narrative: General: See HPI MSK: See HPI All other review of systems have been reviewed and ultimately negative unless otherwise stated in HPI. Patient History <Alex Yousif PA-C - Last Filed: 07/16/24 12:36> Social History Smoking Status: Never smoker Smoking Status: Never smoker alcohol intake frequency: other Substance Use Type: does not use Exam <Alex Yousif PA-C - Last Filed: 07/16/24 12:36> Initial Vital Signs Initial Vital Signs: Vital Signs Temperature 97.8 F 07/16/24 10:40 Pulse Rate 97 H 07/16/24 10:40 Respiratory Rate 16 07/16/24 10:40 Blood Pressure 125/87 07/16/24 10:40 Pulse Oximetry 99 07/16/24 10:40 Oxygen Delivery Method Room Air 07/16/24 10:40 Const General: cooperative, healthy appearing, comfortable, well developed and well groomed [facility] Head: normal to inspection, normocephalic and atraumatic Ears: external ears normal Nose: external nose normal and nares normal Face and sinus: normal facial exam Throat: posterior oropharynx normal Eyes General: Yes appearance normal, both eyes and all related structures Eyelids: eyelids normal Sclera: sclerae normal Cornea: corneas normal Pupils: PERRL Neck Neck: normal visual inspection, full ROM and no meningeal signs Resp Effort & Inspection: normal respiratory effort and able to speak in complete sentences Auscultation: clear to auscultation bilaterally Cardio Rate: regular rate Rhythm: regular rhythm Heart Sounds: S1 normal and S2 normal Back/Spine/Pelvis Back: normal to inspection Skin General: no rashes or lesions noted, elasticity normal and turgor normal Neuro General: patient alert, patient awake and patient oriented x3 Extrem Other: Patient has mild soft tissue swelling noted over the lateral aspect of the right malleolus. Neurovascularly distally intact with capillary refill less than 2 seconds. Slight tenderness to palpation noted. No excessive warmth to palpation. Full range of motion of the ankle is noted. Psych Appearance: grossly normal and well kempt <Shanice Brown DO - Last Filed: 07/17/24 07:34> Initial Vital Signs Initial Vital Signs: Vital Signs Temperature 97.8 F 07/16/24 10:40 Pulse Rate 97 H 07/16/24 10:40 Respiratory Rate 16 07/16/24 10:40 Blood Pressure 125/87 07/16/24 10:40 Pulse Oximetry 99 07/16/24 10:40 Oxygen Delivery Method Room Air 07/16/24 10:40 Course <Alex Yousif PA-C - Last Filed: 07/16/24 12:36> Course Course Narrative: Patient was seen and examined. X-rays of the right ankle and foot were ordered at the time of triage and interpreted by the radiologist as a normal study. Patient was notified of the negative findings. He was informed to discontinue aspirin and I will start him on indomethacin. Patient understands the treatment plan. There were no additional questions at the time of discharge and will follow up as requested Orders Ordered: ED Orders 07/16/24 10:59 XR ankle RT min 3V Stat XR foot RT min 3V Stat Vital Signs Vital signs: Vital Signs - 8 hr 07/16/24 10:40 Temperature 97.8 F Pulse Rate 97 H Respiratory Rate 16 Blood Pressure 125/87 Pulse Oximetry 99 Oxygen Delivery Method Room Air <Shanice Brown DO - Last Filed: 07/17/24 07:34> Orders Ordered: ED Orders 07/16/24 10:59 XR ankle RT min 3V Stat XR foot RT min 3V Stat Vital Signs Vital signs: Vital Signs - 8 hr 07/16/24 10:40 Temperature 97.8 F Pulse Rate 97 H Respiratory Rate 16 Blood Pressure 125/87 Pulse Oximetry 99 Oxygen Delivery Method Room Air MDM - Extremity (Nontraumatic) <Alex Yousif PA-C - Last Filed: 07/16/24 12:36> Differential Diagnosis Differential diagnosis: Likely other (Gout, muscle strain, occult fracture, ankle sprain, tendinitis as well as other) Medical Records Attestation: I reviewed the patient's medical records. Discharge Plan Departure Patient Disposition: Home Clinical Impression: Muscle strain of right ankle Qualifiers: Encounter type: initial encounter Qualified Code(s): S96.911A - Strain of unspecified muscle and tendon at ankle and foot level, right foot, initial encounter Instructions: DI for Muscle Strain Activity Restrictions/Additional Instructions: Walk as tolerated and as normal as possible as discussed Start the medication today as prescribed and discontinue aspirin You can consider taking Tylenol for additional pain control up to 3 times a day Apply moist heat to the affected area 10 minutes at a time 5 times a day Stretch the ankle as tolerated Follow-up with your PCP as a recheck Return here for any new, emergent concerns or if he should worsen in any way Prescriptions: New indomethacin 50 mg capsule 50 mg PO TID PRN (Reason: pain) Qty: 20 0RF Rx Instructions: administer with food or milk Referrals: ProviderAysha [Primary Care Provider] - Stand Alone Forms: Patient Portal/API ED Sign-out <Shanice Brown DO - Last Filed: 07/17/24 07:34> Cosign ED Attending Kevinature Attestation: I was available for consultation.
== END 2024-07-16 12:38 | disposition home or self-care (01) ==
PROVIDERS: Emergency Provider Physician Assistant
DX: S96.911A Strain of unspecified muscle and tendon at ankle and foot level, right foot, initial encounter (principal)
CPT/HCPCS: 73610; 73630; 99283